=== PATIENT | male | born 1995 | race Two or more races ===

== ENCOUNTER 2024-04-08 12:05 | Outpatient (CLI) | payer OTHER ==
[2024-04-08 14:22] LABS: MYCOPLASMA PNEUMONIAE IGM NON REACTIVE (NO REACTIVE)
== END 2024-04-08 12:10 | disposition home or self-care (01) ==
LOC: LAB 12:05
PROVIDERS: ATTEND General Practice
DX: A49.3 Mycoplasma infection, unspecified site (principal); J11.1 Influenza due to unidentified influenza virus with other respiratory manifestations; R05.9 Cough, unspecified

== ENCOUNTER → 2025-04-28 11:47 | Outpatient (CLI) | payer OTHER ==
[2025-04-28 12:47] LABS: BASO % 0.7 % (0.1-1.2); EOS # 0.29 (0.04-0.54); EOS % 3.5 % (0.7-7.0); LYMPH # 1.81 (1.18-3.74); LYMPH % 22.0 % (19.3-53.1); MEAN PLATELET VOLUME 9.60 fl (9.4-12.4); MONO # 0.49 (0.24-0.82); MONO % 6.0 % (4.7-12.5); NEUT # 5.55 (1.56-6.13); NEUT % 67.6 % (34.0-71.1); RED CELL DISTRIBUTION WIDTH 13.5 % (11.6-14.4)
[2025-04-28 13:21] LABS: ALT/SGPT 77.0 U/L (12-78); AST/SGOT 32.0 U/L (15-37); BILIRUBIN TOTAL 0.51 mg/dL (0.3-1.2); BUN CREA RATIO 11.0 (7.0-25.0); CREATININE SERUM 0.8 mg/dL (0.70-1.30); GFR 112.03; GLOBULINA 3.7 G/DL (2.4-3.5); GLUCOSE FASTING 77.0 mg/dL (65-100); OSMOLALITY SERUM 281.0 MOSM/KG (275-295)
[2025-04-30 08:11] LABS: HEPATITIS A ANTIBODY IGG Negative (Negative); HEPATITIS A IGM Negative (Negative); HEPATITIS B SURFACE ANTIBODY Non Reactive (.); HEPATITIS C VIRUS ANTIBODY Non Reactive (Non Reactive)
== END | disposition home or self-care (01) ==
LOC: LAB 11:47
DX: R10.13 Epigastric pain (principal); R79.89 Other specified abnormal findings of blood chemistry; Z11.59 Encounter for screening for other viral diseases

== ENCOUNTER 2025-04-28 12:08 | Outpatient (CLI) | payer OTHER | END 2025-04-28 12:13 | disposition home or self-care (01) | LOC: RAD 12:08 | PROVIDERS: ATTEND Internal Medicine Gastroenterology | DX: R07.9 Chest pain, unspecified (principal) ==

== ENCOUNTER 2025-05-18 09:05 | Outpatient (CLI) | payer OTHER | END 2025-05-18 09:08 | disposition home or self-care (01) | LOC: SONOGRAMA 09:05 | PROVIDERS: ATTEND Internal Medicine Gastroenterology | DX: R10.13 Epigastric pain (principal) ==

== ENCOUNTER 2025-06-20 11:12 | Emergency (ER) | payer OTHER ==
[~2025-06-20] VITALS: Ht 170.2 cm; Wt 81.6 kg
[2025-06-20] MEDS ORDERED: PRILOSEC OTC20 MG (12:20)
[2025-06-20 13:37] LABS: BASO % 0.6 % (0.1-1.2); EOS # 0.46 (0.04-0.54); EOS % 4.0 % (0.7-7.0); LYMPH # 2.14 (1.18-3.74); LYMPH % 18.7 % (19.3-53.1); MEAN PLATELET VOLUME 9.50 fl (9.4-12.4); MONO # 0.97 (0.24-0.82); MONO % 8.5 % (4.7-12.5); NEUT # 7.78 (1.56-6.13); NEUT % 68.0 % (34.0-71.1); RED CELL DISTRIBUTION WIDTH 13.6 % (11.6-14.4)
[2025-06-20 13:39] LABS: ERYTHROCYTE SEDIMENTATION RATE 51 mm/hr (0-15)
[2025-06-20 14:00] LABS: INR 1.02
[2025-06-20 14:01] LABS: ALT/SGPT 46.0 U/L (12-78); AST/SGOT 25.0 U/L (15-37); BILIRUBIN TOTAL 0.29 mg/dL (0.3-1.2); BUN CREA RATIO 18.0 (7.0-25.0); CREATININE SERUM 0.79 mg/dL (0.70-1.30); GFR 113.66; GLOBULINA 4.1 G/DL (2.4-3.5); GLUCOSE FASTING 90.0 mg/dL (65-100); OSMOLALITY SERUM 283.0 MOSM/KG (275-295)
[2025-06-20 14:14] LABS: URINE APPEARANCE Clear; URINE BILIRRUBIN Negative (NEGATIVE); URINE BLOOD Negative; URINE COLOR Yellow; URINE GLUCOSE Negative (NEGATIVE); URINE KETONE Negative (NEGATIVE); URINE LEUKOCYTE Negative; URINE NITRATE Negative; URINE PROTEIN Trace (NEGATIVE); URINE UROBILINOGEN 1.0 E.U./dl
[2025-06-20 14:18] LABS: URINE EPITHELIAL CELLS 2.7 uL (0.0-38.8); URINE WBC 4.5 uL (0.0-23.2)
[2025-06-20 14:25] LABS: URINE BACTERIA 3.4 uL (0.0-1933); URINE CAST 0.28 uL (0.0-1.40); URINE RBC 1.4 uL (0.0-20.8)
[2025-06-20 14:28] LABS: COVID-19 AG NEGATIVE (NEGATIVE)
[2025-06-20] MEDS ORDERED: IBU600 MG PO (20:49)
[2025-06-20] MEDS ORDERED: MUCINEX DM ER1 EAC1 PO (20:49)
[2025-06-20] MEDS ORDERED: LEVOFLOXACIN750 MG PO (20:49)
== END 2025-06-20 23:09 | disposition home or self-care (01) ==
LOC: ER 11:13
PROVIDERS: Physician Assistant Medical
DX: K62.89 Other specified diseases of anus and rectum (principal); J31.0 Chronic rhinitis; K51.90 Ulcerative colitis, unspecified, without complications; Z20.822 Contact with and (suspected) exposure to COVID-19
CPT/HCPCS: 36415; 74177; 76870; Q9965